=== PATIENT | female | born 2000 | race American Indian/Alaskan Native ===

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

== ENCOUNTER 2019-01-24 22:00 | Inpatient (IN) | payer OTHER ==
[2019-01-24] MEDS ORDERED: LACTATED RINGERS 1,000 ML IV ONE (22:14)
[2019-01-24] MEDS ORDERED: ZOFRAN IV ONE (22:15)
[2019-01-24 23:39] LABS: Hematocrit 35.7 % (30.3-42.9); Hemoglobin 11.8 gm/dl (10.1-14.3); Mean Corpuscular HGB Conc 33 % (30-34); Mean Corpuscular Volume 83 fl (79-97); Platelet Count 174 K/mm3 (140-440); Red Cell Distribution Width 13.2 % (13.2-15.2)
[2019-01-24] MEDS ORDERED: PITOCin/NS 20 UNIT/1000ML DRIP 20 UNITS/1,000 ML BAG IV SCH (23:45)
[2019-01-24 23:48] LABS: BUN/Creatinine Ratio 13; Blood Urea Nitrogen 8 mg/dL (7-17); Calcium 8.7 mg/dL (8.4-10.2); Hemolysis Index 9
[2019-01-24] MEDS ORDERED: AMPICILLIN/NS 2 GM/100 ML 2 GM/100 ML BAG IV ONE (23:53)
[2019-01-24] MEDS ORDERED: BRETHINE IVP PRN (23:53)
[2019-01-24] MEDS ORDERED: MINERAL OIL PO PRN (23:53)
[2019-01-24] MEDS ORDERED: SUBLIMAZE IV PRN (23:53)
[2019-01-24] MEDS ORDERED: XYLOCAINE 2% INFILTRATI ONE (23:53)
[2019-01-24] MEDS ORDERED: BRETHINE SUB-Q PRN (23:53)
[2019-01-24] MEDS ORDERED: STADOL IV PRN (23:53)
[2019-01-25 00:09] LABS: Bilirubin,Urine NEG (Negative); Blood,Urine NEG (Negative); Mucus,Urine 3+ /HPF
[2019-01-25 00:10] LABS: Color,Urine Yellow (Yellow)
[2019-01-25] MEDS: LACTATED RINGERS 1,000 ML IV SCH ×3 (00:24→08:47)
[2019-01-25] MEDS ORDERED: NARCAN 2 MG/2 ML IV PRN (01:43)
--- NOTE | 2019-01-25 01:45 | Anesthesia Consultation ---
Anesthesia Consult and Med Hx Date of service: 01/25/19 - Airway Anesthetic Teeth Evaluation: Good ROM Head & Neck: Adequate Mental/Hyoid Distance: Adequate Mallampati Class: Class I Intubation Access Assessment: Good - Pulmonary Exam CTA: Yes - Cardiac Exam Cardiac Exam: RRR - Pre-Operative Health Status ASA Pre-Surgery Classification: ASA2 Proposed Anesthetic Plan: Epidural - Pulmonary Hx Smoking: No Hx Asthma: No COPD: No Hx Pneumonia: No - Cardiovascular System Hx Hypertension: No Hx Coronary Artery Disease: No - Central Nervous System Hx Neuromuscular Disorder: No Hx Seizures: No Hx Psychiatric Problems: Yes (ADHD- no meds at this time) - Endocrine Hx Renal Disease: No Hx End Stage Renal Disease: No Hx Hypothyroidism: No Hx Hyperthyroidism: No - Hematic Hx Anemia: No Hx Sickle Cell Disease: No - Other Systems Hx Alcohol Use: No
[2019-01-25] MEDS ORDERED: XYLOCAINE 2%/ EPI 1:200,000 INFILTRATI ONE (01:49)
[2019-01-25] MEDS: fentaNYL-BUPIV 2 MCG/ML-0.125% 200 MCG/100 ML BAG EPIDURAL SCH ×2 (02:35→10:48)
[2019-01-25] MEDS: AMPICILLIN/NS 1 GM/50 ML 1 GM/50 ML BAG IV SCH ×2 (04:00→08:45)
[2019-01-25] MEDS: LOMOTIL PO PRN ×2 (05:10→11:01)
[2019-01-25] MEDS ORDERED: TYLENOL ONE (06:51)
[2019-01-25] MEDS ORDERED: PITOCin/NS 30 UNIT/500ML 30,000 MILLIUNITS/500 ML BAG IV ONE (08:19)
[2019-01-25] MEDS ORDERED: LACTATED RINGERS 1,000 ML IV SCH (09:00)
[2019-01-25] MEDS ORDERED: PITOCin/NS 30 UNIT/500ML 30 UNITS/500 ML BAG IV SCH (09:00)
[2019-01-25] MEDS ORDERED: AFLURIA QUAD 2018-2019 SYRINGE IM ONE (12:00)
[2019-01-25] MEDS ORDERED: PNEUMOVAX 23 IM ONE (12:00)
--- NOTE | 2019-01-25 12:20 | History and Physical Report ---
History of Present Illness Date of examination: 01/25/19 Date of admission: 01/25/19 00:01 Chief complaint: contractions History of present illness: 18y/o @ 38+5 weeks presents in active labor with advanced cervical dilation. The patient initiated care late @ 26 weeks ega. Her course is also complicated by non-compliance. GBS status is unknown Past History Past Medical History: no pertinent history Past Surgical History: cholecystectomy Social history: single - Obstetrical History Expected Date of Delivery: 02/03/19 Actual Gestation: 38 Week(s) 5 Day(s) : 2 Para: 1 Hx # Term Pregnancies: 1 Number of Pregnancies: 0 Spontaneous Abortions: 0 Induced : 0 Number of Living Children: 1 Medications and Allergies Allergies Allergy/AdvReac Type Severity Reaction Status Date / Time No Known Allergies Allergy Verified 01/23/16 07:38 Home Medications Medication Instructions Recorded Confirmed Last Taken Type Ibuprofen [Motrin] 600 mg PO Q8H PRN #15 tablet 02/21/17 Unknown Rx Ondansetron [Zofran Odt] 4 mg PO Q8HR PRN #10 tab.rapdis 02/21/17 Unknown Rx Potassium Chloride [K-Dur] 20 meq PO BID 2 Days #4 tab 10/02/18 Unknown Rx cephALEXin [Keflex] 500 mg PO Q12H 7 Days #14 cap 10/02/18 Unknown Rx Active Meds: Active Medications Butorphanol Tartrate (Stadol) 2 mg IV Q2H PRN PRN Reason: Pain , Severe (7-10) Diphenoxylate HCl/Atropine (Lomotil) 1 tab PO Q6H PRN PRN Reason: Diarrhea Last Admin: 01/25/19 11:01 Dose: 1 tab Documented by: Ephedrine Sulfate (Ephedrine Sulfate) 10 mg IV Q2M PRN PRN Reason: Hypotension Fentanyl (Sublimaze) 100 mcg IV Q2H PRN PRN Reason: Labor Pain Ampicillin Sodium (Ampicillin/Ns 1 Gm/50 Ml) 1 gm in 50 mls @ 100 mls/hr IV Q4HR ROBYN; Protocol Last Admin: 01/25/19 08:45 Dose: 100 mls/hr Documented by: Lactated Ringer's (Lactated Ringers) 1,000 mls @ 125 mls/hr IV DIRECT ROBYN Last Admin: 01/25/19 08:47 Dose: 200 mls/hr Documented by: Oxytocin/Sodium Chloride (Pitocin/Ns 20 Unit/1000ml Drip) 20 units in 1,000 mls @ 125 mls/hr IV DIRECT ROBYN Fentanyl/Bupivacaine/Sodium Chlor (Fentanyl-Bupiv 2 Mcg/Ml-0.125%) 200 mcg in 100 mls @ 12 mls/hr EPIDURAL TITR ROBYN; Protocol Last Admin: 01/25/19 10:48 Dose: 12 mls/hr Documented by: Lactated Ringer's (Lactated Ringers) 1,000 mls @ 200 mls/hr IV DIRECT ROBYN Oxytocin/Sodium Chloride (Pitocin/Ns 30 Unit/500ml) 30 units in 500 mls @ 2 mls/hr IV TITR ROBYN; Protocol Mineral Oil (Mineral Oil) 30 ml PO QHS PRN PRN Reason: Constipation Naloxone HCl (Narcan 2 Mg/2 Ml) 0.2 mg IV Q5M PRN PRN Reason: Respiratory sedation Terbutaline Sulfate (Brethine) 0.25 mg SUB-Q ONCE PRN PRN Reason: Hyperstimulation/Hypertonicity Terbutaline Sulfate (Brethine) 0.25 mg IVP ONCE PRN PRN Reason: Hyperstimulation/Hypertonicity Review of Systems All systems: negative Gastrointestinal: diarrhea Genitourinary: pelvic pain, contractions - Vital Signs Vital signs: Vital Signs Pulse Pulse Ox 87 100 01/24/19 22:46 01/24/19 22:46 Temp Pulse Resp BP Pulse Ox 98.2 F 93 H 16 129/71 100 01/25/19 08:43 01/25/19 12:17 01/25/19 08:43 01/25/19 12:17 01/25/19 11:58 - Physical Exam Breasts: Positive: deferred Cardiovascular: Regular rate Lungs: Positive: Clear to auscultation Abdomen: Positive: normal appearance Results Result Diagrams: 01/24/19 22:49 01/24/19 22:49 Abnormal lab results 01/24/19 01/24/19 01/24/19 Range/Units 22:49 22:49 22:49 MCH 27 L (28-32) pg Carbon Dioxide 19 L (22-30) mmol/L Creatinine 0.6 L (0.7-1.2) mg/dL Ur Specific [place] 1.032 H (1.003-1.030) All other labs normal. Assessment and Plan - Patient Problems (1) Active labor at term Current Visit: Yes Status: Acute Plan to address problem: admit to L&D
[2019-01-25] MEDS ORDERED: DULCOLAX PR PRN (12:21)
[2019-01-25] MEDS ORDERED: NORCO 5/325 PO PRN (12:21)
[2019-01-25] MEDS ORDERED: MILK OF MAGNESIA PO PRN (12:21)
[2019-01-25] MEDS ORDERED: LANSINOH TP PRN (12:21)
[2019-01-25] MEDS ORDERED: BENADRYL PO PRN (12:21)
[2019-01-25] MEDS ORDERED: ZOFRAN IV PRN (12:21)
[2019-01-25] MEDS ORDERED: PHENERGAN PR PRN (12:21)
[2019-01-25] MEDS ORDERED: PHENERGAN PO PRN (12:21)
[2019-01-25] MEDS ORDERED: TYLENOL PO PRN (12:21)
[2019-01-25] MEDS ORDERED: TUCKS PAD TP PRN (12:21)
--- NOTE | 2019-01-25 12:21 | Procedure Note ---
OB Delivery Note - Delivery Date of Delivery: 01/25/19 Surgeon: EDMOND RANKIN Estimated blood loss: 100cc - Vaginal Delivery presentation: vertex Delivery position: OA Intrapartum events: none Delivery augmentation: pitocin Delivery monitor: external FHT Route of delivery: Delivery placenta: spontaneous Delivery cord: 3 umbilical vessels Episiotomy: none Delivery laceration: none Anesthesia: epidural Delivery comments: Patient progressed to C/C/+2 and pushed to deliver a liveborn female with apgars of 8/9 and weight of 6lbs 12oz. After delivery of the head, the shoulders delivered without difficulty. The was bulb suctioned. The cord clamped and cut and the placed on the patient's chest. The placenta delivered spontaneously intact with a 3VC. No lacerations noted. EBL 100ml - A at 1 minute: 8 at 5 minutes: 9 Infant Gender: Female (weight 6lbs 12oz)
[2019-01-25] MEDS ORDERED: SODIUM CHLORIDE FLUSH SYRINGE 10 ML IV NR (13:00)
[2019-01-25] MEDS ORDERED: TYLENOL PO ONE (16:27)
[2019-01-25] MEDS ORDERED: NACL 0.9% 1000 ML 1,000 ML IV ONE (16:40)
--- NOTE | 2019-01-25 21:33 | Post Anesthesia Evaluation ---
- Post Anesthesia Evaluation Patient Participated: Yes Airway Patent: Yes Stable Respiratory Function: Yes Nausea/Vomiting: No Temp > 96.8F: Yes Pain Manageable: Yes Adequeate Hydration: Yes Anesthesia Complications: No Block Receding Appropriately: Yes Patient on Ventilator: No
[2019-01-25] MEDS: IBUPROFEN PO SCH (23:56)
[2019-01-26 00:51] LABS: Hematocrit 26.9 % (30.3-42.9); Hemoglobin 8.7 gm/dl (10.1-14.3)
[2019-01-26] MEDS: IBUPROFEN PO SCH ×3 (05:41→19:00)
--- NOTE | 2019-01-26 08:46 | Progress Note ---
Assessment and Plan A/P PPD #1 s/p spike temp with watery diarrhea may have diarrhea cultured continue present mgt Subjective - Subjective Date of service: 01/26/19 (s/p ) Patient reports: appetite normal, voiding normally, pain well controlled, flatus, ambulating normally : doing well Objective - Vital Signs Latest vital signs: Vital Signs Temp Pulse Resp BP BP Pulse Ox 01/26/19 05:41 20 01/26/19 02:00 98.2 F 69 18 101/61 01/25/19 23:56 18 01/25/19 21:00 97.4 F L 73 18 117/61 99 01/25/19 19:40 98.8 F 01/25/19 16:42 20 01/25/19 15:55 102.4 F H 88 18 114/74 01/25/19 15:15 98.5 F 89 140/71 01/25/19 13:40 75 125/85 01/25/19 13:25 70 134/68 01/25/19 13:10 84 130/74 01/25/19 12:55 83 132/70 100 01/25/19 12:50 92 H 100 01/25/19 12:45 91 H 98 01/25/19 12:43 104 H 90 01/25/19 12:40 82 141/70 96 01/25/19 12:38 86 92 01/25/19 12:35 78 97 01/25/19 12:31 82 69 L 01/25/19 12:30 86 100 01/25/19 12:25 80 83 L 01/25/19 12:24 83 127/68 01/25/19 12:17 93 H 129/71 01/25/19 12:13 98.2 F 20 01/25/19 12:03 92 H 132/75 01/25/19 11:58 85 100 01/25/19 11:53 92 H 100 01/25/19 11:52 88 122/77 01/25/19 11:49 86 149/102 01/25/19 11:48 88 85 01/25/19 11:43 84 100 01/25/19 11:38 82 100 01/25/19 11:34 85 132/77 01/25/19 11:33 75 100 01/25/19 11:18 78 119/68 01/25/19 11:07 72 100 01/25/19 11:02 78 100 01/25/19 11:00 83 125/58 01/25/19 10:59 58 L 94 01/25/19 10:56 84 100 01/25/19 10:51 85 99 01/25/19 10:46 82 99 01/25/19 10:44 80 124/73 01/25/19 10:41 76 100 01/25/19 10:36 88 99 01/25/19 10:31 85 99 01/25/19 10:29 84 122/69 01/25/19 10:26 79 81 L 01/25/19 10:20 82 66 L 01/25/19 10:19 84 56 L 01/25/19 10:15 80 117/66 99 01/25/19 10:10 99 H 99 01/25/19 10:05 91 H 98 01/25/19 10:00 97.9 F 86 16 98 01/25/19 09:59 78 122/69 01/25/19 09:55 87 99 01/25/19 09:50 99 H 99 01/25/19 09:45 96 H 98 01/25/19 09:44 84 126/60 01/25/19 09:39 108 H 85 01/25/19 09:34 83 100 01/25/19 09:31 81 122/62 01/25/19 09:29 98 H 98 01/25/19 09:24 95 H 100 01/25/19 09:19 101 H 99 01/25/19 09:16 99 H 124/88 01/25/19 09:14 88 98 01/25/19 09:09 101 H 98 01/25/19 09:04 91 H 98 01/25/19 08:59 98 H 119/65 97 01/25/19 08:54 81 97 01/25/19 08:49 91 H 98 Intake and Output 01/25/19 01/26/19 01/26/19 23:59 07:59 15:59 Intake Total 240 480 Output Total 900 Balance -660 480 Intake: Intake, Free Water 240 480 Output: Urine 900 Void 900 Other: Total, Output Amount 900 # Voids Void 1 - Exam Breasts: Present: normal Cardiovascular: Present: Regular rate, Normal S1 Lungs: Present: Clear to auscultation, Normal air movement Abdomen: Present: normal appearance, soft, normal bowel sounds. Absent: distention, tenderness, guarding Vulva: both: normal Uterus: Present: normal, firm, fundal height below umbilicus. Absent: bogginess, tenderness Extremities: Present: normal Deep Tendon Reflex Grade: Normal +2 Incision: Present: normal - Labs Labs: Abnormal lab results 01/26/19 Range/Units 00:33 Hgb 8.7 L D (10.1-14.3) gm/dl Hct 26.9 L D (30.3-42.9) %
--- NOTE | 2019-01-26 12:51 | Discharge Summary ---
Providers - Providers Date of Admission: 01/25/19 00:01 Date of discharge: 01/27/19 Attending physician: EDMOND RANKIN Primary care physician: EDMOND RANKIN Hospitalization Reason for admission: active labor Delivery: Episiotomy: none Laceration: none Incision: normal, dry, intact Other procedures: none Discharge diagnosis: IUP at term delivered baby: female Hospital course: unremarkable hospital cousre. Had one temp spike. patient had diarrhea resolved prior to discharge home Condition at discharge: Good Disposition: DC- TO HOME OR SELFCARE Plan - Discharge Medications Prescriptions: Ibuprofen [Motrin] 600 mg PO Q8H PRN #30 tablet PRN Reason: Pain oxyCODONE /ACETAMINOPHEN [Percocet 5/325] 1 tab PO Q6HR PRN #30 tablet PRN Reason: Pain - Provider Discharge Summary Activity: routine, no sex for 6 weeks, no strenuous exercise Diet: routine Instructions: routine Additional instructions: [] Smoking cessation referral if applicable(refer to patient education folder for contact #) [] Refer to [facility] Booklet Call your doctor immediately for: * Fever > 100.5 * Heavy vaginal bleeding ( >1 pad per hour) * Severe persistent headache * Shortness of breath * Reddened, hot, painful area to leg or breast * Drainage or odor from incision. * Keep incision clean and dry at all times and follow doctor's instructions regarding bathing/showering - Follow up plan Follow up: EDMOND RANKIN MD [Primary Care Provider] - 14 Days
[2019-01-27] MEDS: IBUPROFEN PO SCH ×2 (01:53→13:12)
[2019-01-27 17:36] VITALS: BP 133/80
[2019-01-27] MEDS ORDERED: BOOSTRIX IM ONE (19:00)
[2019-01-27] MEDS ORDERED: AFLURIA QUAD 2018-2019 SYRINGE IM ONE (19:00)
== END 2019-01-27 19:20 | disposition home or self-care (01) | DRG 774 ==
LOC: TRG 22:00 → LD 01-25 00:01 → OB 01-25 14:42
PROVIDERS: ADMIT Obstetrics & Gynecology; ATTEND Obstetrics & Gynecology
PROC: 10E0XZZ Delivery of Products of Conception, External Approach (ICD-10-PCS; principal; 2019-01-25)
PROC: 3E0R3BZ Introduction of Anesthetic Agent into Spinal Canal, Percutaneous Approach (ICD-10-PCS; 2019-01-25)
PROC: 00HU33Z Insertion of Infusion Device into Spinal Canal, Percutaneous Approach (ICD-10-PCS; 2019-01-25)
PROC: 3E0234Z Introduction of Serum, Toxoid and Vaccine into Muscle, Percutaneous Approach (ICD-10-PCS; 2019-01-27)
DX: O99.344 Other mental disorders complicating childbirth (principal); O86.4 Pyrexia of unknown origin following delivery; Z3A.38 38 weeks gestation of pregnancy; Z37.0 Single live birth; R19.7 Diarrhea, unspecified; Z23 Encounter for immunization; Z90.49 Acquired absence of other specified parts of digestive tract; O99.63 Diseases of the digestive system complicating the puerperium; F90.9 Attention-deficit hyperactivity disorder, unspecified type
CPT/HCPCS: 36415; 80048; 81001; 85014; 85018; 85027; 86592; 86850; 86900; 86901; 90686; 90732; G0378; J0290; J2405; J2590; J3010; J7030; J7120

== ENCOUNTER 2019-06-07 15:02 | Emergency (ER) | payer OTHER ==
[2019-06-07 15:11] VITALS: BP 135/90
--- NOTE | 2019-06-07 15:11 | Event Note ---
ED Screening Note ED Screening Note: pt presents with left sided flank pain that began three days ago no N/V/D no urinary sx last BM two days ago LNMP may 29 no pmhx no allergies to meds PSHx cholecystectomy +tobacco non drinker no drug use This initial assessment/diagnostic orders/clinical plan/treatment(s) is/are subject to change based on patients health status, clinical progression and re- assessment by fellow clinical providers in the ED. Further treatment and workup at subsequent clinical providers discretion. Patient/guardian urged not to elope from the ED as their condition may be serious if not clinically assessed and managed. Initial orders include: labs, UA, urine preg, XR abd
[2019-06-07 16:14] LABS: Bilirubin,Urine NEG (Negative); Blood,Urine NEG (Negative); Color,Urine Yellow (Yellow); Mucus,Urine FEW /HPF; Protein,Urine <15 mg/dL mg/dL (Negative); Urobilinogen,Urine < 2.0 mg/dL (<2.0)
[2019-06-07 16:16] LABS: HCG Qualitative,Urine Negative (Negative)
[2019-06-07 16:19] LABS: Basophils % (Auto) 0.4 % (0.0-1.8); Eosinophils # (Auto) 0.1 K/mm3 (0.0-0.4); Eosinophils % (Auto) 1.8 % (0.0-4.3); Hematocrit 35.8 % (30.3-42.9); Hemoglobin 11.6 gm/dl (10.1-14.3); Lymphocytes # (Auto) 2.2 K/mm3 (1.2-5.4); Lymphocytes % (Auto) 29.5 % (13.4-35.0); Mean Corpuscular HGB Conc 32 % (30-34); Mean Corpuscular Hemoglobin 27 pg (28-32); Mean Corpuscular Volume 83 fl (79-97); Monocytes # (Auto) 0.7 K/mm3 (0.0-0.8); Monocytes % (Auto) 9.2 % (0.0-7.3); Platelet Count 259 K/mm3 (140-440); Red Blood Count 4.32 M/mm3 (3.65-5.03); Red Cell Distribution Width 13.7 % (13.2-15.2)
[2019-06-07 16:35] LABS: BUN/Creatinine Ratio 8; Blood Urea Nitrogen 5 mg/dL (7-17); Calcium 9.3 mg/dL (8.4-10.2)
[2019-06-07 16:36] LABS: Alanine Aminotransferase 13 units/L (7-56); Albumin 3.9 g/dL (3.9-5); Hemolysis Index 6; Lipase 18 units/L (13-60)
--- NOTE | 2019-06-07 17:17 | XRay Report ---
ABDOMEN 3 VIEW(S) INDICATION / CLINICAL INFORMATION: constipation, abd pain. COMPARISON: None available. FINDINGS: TUBES / LINES: Biliary stent is noted in the right upper quadrant of abdomen. BOWEL GAS PATTERN: Moderate amount of solid stool seen within the colon characteristic for constipati on. FREE AIR / EXTRALUMINAL GAS: None seen. ADDITIONAL FINDINGS: Cholecystectomy clips. IMPRESSION: 1. Moderate constipation. No acute abdominal disease Signer Name: José Miguel Bliss MD Signed: 06/07/2019 5:13 PM Workstation Name: [id number]
--- NOTE | 2019-06-07 18:50 | Emergency Department Report ---
ED Abdominal Pain HPI - General Chief Complaint: Abdominal Pain Stated Complaint: RT SIDE PAIN Time Seen by Provider: 06/07/19 15:09 Source: patient Mode of arrival: Ambulatory Limitations: No Limitations - History of Present Illness Initial Comments: This is a 19-year-old -[place] female presents to the emergency room with right sided abdominal pain for 3 days. Patient also reports nausea without vomiting. She reports pain is worse with movement. Her last menstrual period was 05/29/2019, A0. Patient denies vaginal discharge, vaginal bleeding, dysuria, urinary frequency, or urgency. MD Complaint: abdominal pain Onset/Timin -: days(s) Location: RUQ, RLQ Radiation: none Migration to: no migration Severity: moderate Severity scale (0 -10): 4 Quality: cramping, aching Consistency: intermittent Improves With: nothing Worsens With: movement Associated Symptoms: nausea. denies: vomiting, diarrhea, fever, chills, constipation, dysuria, hematemesis, hematochezia, melena, hematuria, anorexia, syncope Treatments Prior to Arrival: NSAIDs - Related Data LMP Date: 05/29/19 Previous Rx's Medication Instructions Recorded Last Taken Type Ibuprofen [Motrin] 600 mg PO Q8H PRN #15 tablet 02/21/17 Unknown Rx Ondansetron [Zofran Odt] 4 mg PO Q8HR PRN #10 tab.rapdis 02/21/17 Unknown Rx Potassium Chloride [K-Dur] 20 meq PO BID 2 Days #4 tab 10/02/18 Unknown Rx cephALEXin [Keflex] 500 mg PO Q12H 7 Days #14 cap 10/02/18 Unknown Rx Ibuprofen [Motrin] 600 mg PO Q8H PRN #30 tablet 01/26/19 Unknown Rx oxyCODONE /ACETAMINOPHEN [Percocet 1 tab PO Q6HR PRN #30 tablet 01/26/19 Unknown Rx 5/325] Docusate Sodium [Colace CAP] 100 mg PO BID PRN #30 capsule 06/07/19 Unknown Rx Psyllium Husk/Laxative No.1 [Colox 750 mg PO DAILY #20 capsule 06/07/19 Unknown Rx 750 mg Capsule] Allergies Allergy/AdvReac Type Severity Reaction Status Date / Time No Known Allergies Allergy Verified 01/23/16 07:38 ED Review of Systems ROS: Stated complaint: RT SIDE PAIN Other details as noted in HPI Constitutional: denies: chills, fever Respiratory: denies: cough, shortness of breath, wheezing Cardiovascular: denies: chest pain, palpitations Gastrointestinal: abdominal pain, nausea. denies: vomiting, diarrhea Musculoskeletal: denies: back pain, joint swelling, arthralgia Skin: denies: rash, lesions Neurological: denies: headache, weakness, paresthesias Psychiatric: denies: anxiety, depression ED Past Medical Hx - Past Medical History Previous Medical History?: Yes Hx Hypertension: No Hx Congestive Heart Failure: No Hx Diabetes: No Hx Deep Vein Thrombosis: No Hx Renal Disease: No Hx Sickle Cell Disease: No Hx Seizures: No Hx Asthma: No Hx COPD: No Hx HIV: No Additional medical history: Irregular menses - Surgical History Past Surgical History?: Yes Hx Cholecystectomy: Yes Additional Surgical History: Gallbladder - Social History Smoking Status: Smoker, Current Status Unknown Substance Use Type: None - Medications Home Medications: Home Medications Medication Instructions Recorded Confirmed Last Taken Type Ibuprofen [Motrin] 600 mg PO Q8H PRN #15 tablet 02/21/17 01/25/19 Unknown Rx Ondansetron [Zofran Odt] 4 mg PO Q8HR PRN #10 tab.rapdis 02/21/17 01/25/19 Unknown Rx Potassium Chloride [K-Dur] 20 meq PO BID 2 Days #4 tab 10/02/18 01/25/19 Unknown Rx cephALEXin [Keflex] 500 mg PO Q12H 7 Days #14 cap 10/02/18 01/25/19 Unknown Rx Ibuprofen [Motrin] 600 mg PO Q8H PRN #30 tablet 01/26/19 Unknown Rx oxyCODONE /ACETAMINOPHEN [Percocet 1 tab PO Q6HR PRN #30 tablet 01/26/19 Unknown Rx 5/325] Docusate Sodium [Colace CAP] 100 mg PO BID PRN #30 capsule 06/07/19 Unknown Rx Psyllium Husk/Laxative No.1 [Colox 750 mg PO DAILY #20 capsule 06/07/19 Unknown Rx 750 mg Capsule] ED Physical Exam - General Limitations: No Limitations General appearance: alert, in no apparent distress - Respiratory Respiratory exam: Present: normal lung sounds bilaterally. Absent: respiratory distress - Cardiovascular Cardiovascular Exam: Present: regular rate, normal rhythm. Absent: systolic murmur, diastolic murmur, rubs, gallop - GI/Abdominal GI/Abdominal exam: Present: soft, normal bowel sounds. Absent: distended, tenderness, guarding, rebound, rigid, organomegaly, mass, bruit, pulsatile mass, hernia - Back Exam Back exam: Present: full ROM, CVA tenderness (R). Absent: CVA tenderness (L), muscle spasm, rash noted - Neurological Exam Neurological exam: Present: alert, oriented X3, normal gait - Psychiatric Psychiatric exam: Present: normal affect, normal mood - Skin Skin exam: Present: warm, dry, intact, normal color. Absent: rash ED Course Vital Signs 06/07/19 15:10 Temperature 98.4 F Pulse Rate 85 Respiratory 16 Rate Blood Pressure 135/90 O2 Sat by Pulse 100 Oximetry ED Medical Decision Making - Lab Data Result diagrams: 06/07/19 16:03 06/07/19 16:03 Lab Results 06/07/19 06/07/19 06/07/19 Range/Units 15:42 16:03 16:03 WBC 7.4 (4.5-11.0) K/mm3 RBC 4.32 (3.65-5.03) M/mm3 Hgb 11.6 (10.1-14.3) gm/dl Hct 35.8 (30.3-42.9) % MCV 83 (79-97) fl MCH 27 L (28-32) pg MCHC 32 (30-34) % RDW 13.7 (13.2-15.2) % Plt Count 259 (140-440) K/mm3 Lymph % (Auto) 29.5 (13.4-35.0) % [place]icher % (Auto) 9.2 H (0.0-7.3) % Eos % (Auto) 1.8 (0.0-4.3) % Baso % (Auto) 0.4 (0.0-1.8) % Lymph # 2.2 (1.2-5.4) K/mm3 Schleicher # 0.7 (0.0-0.8) K/mm3 Eos # 0.1 (0.0-0.4) K/mm3 Baso # 0.0 (0.0-0.1) K/mm3 Seg Neutrophils % 59.1 (40.0-70.0) % Seg Neutrophils # 4.4 (1.8-7.7) K/mm3 Sodium 137 (137-145) mmol/L Potassium 3.9 (3.6-5.0) mmol/L Chloride 99.1 (98-107) mmol/L Carbon Dioxide 29 (22-30) mmol/L Anion Gap 13 mmol/L BUN 5 L (7-17) mg/dL Creatinine 0.6 L (0.7-1.2) mg/dL Estimated GFR > 60 ml/min BUN/Creatinine Ratio 8 % Glucose 98 (65-100) mg/dL Calcium 9.3 (8.4-10.2) mg/dL Total Bilirubin 0.20 (0.1-1.2) mg/dL AST 19 (5-40) units/L ALT 13 (7-56) units/L Alkaline Phosphatase 61 (35-129) units/L Total Protein 7.6 (6.3-8.2) g/dL Albumin 3.9 (3.9-5) g/dL Albumin/Globulin Ratio 1.1 % Lipase 18 (13-60) units/L Urine Color Yellow (Yellow) Urine Turbidity Slightly-cloudy (Clear) Urine pH 7.0 (5.0-7.0) Ur Specific [place] 1.017 (1.003-1.030) Urine Protein <15 mg/dl (Negative) mg/dL Urine Glucose (UA) Neg (Negative) mg/dL Urine Ketones Neg (Negative) mg/dL Urine Blood Neg (Negative) Urine Nitrite Neg (Negative) Urine Bilirubin Neg (Negative) Urine Urobilinogen < 2.0 (<2.0) mg/dL Ur Leukocyte Esterase Tr (Negative) Urine WBC (Auto) 2.0 (0.0-6.0) /HPF Urine RBC (Auto) 1.0 (0.0-6.0) /HPF U Epithel Cells (Auto) 3.0 (0-13.0) /HPF Urine Mucus Few /HPF Urine HCG, Qual Negative (Negative) - Radiology Data Radiology results: report reviewed ABDOMEN 3 VIEW(S) INDICATION / CLINICAL INFORMATION: constipation, abd pain. COMPARISON: None available. FINDINGS: TUBES / LINES: Biliary stent is noted in the right upper quadrant of abdomen. BOWEL GAS PATTERN: Moderate amount of solid stool seen within the colon characteristic for constipation. FREE AIR / EXTRALUMINAL GAS: None seen. ADDITIONAL FINDINGS: Cholecystectomy clips. IMPRESSION: 1. Moderate constipation. No acute abdominal disease - Medical Decision Making Patient examined by me. No distress noted. Vitals stable. Obtained labs and x- ray of abdomen. All labs are unremarkable. The x-ray was dictated by the radiologist and report was reviewed by myself with findings of moderate constipation with no acute abdominal disease. Patient instructed to increase fiber and water intake. Start psyllium and docusate sodium. Follow up with PCP from referral's. Critical care attestation.: If time is entered above; I have spent that time in minutes in the direct care of this critically ill patient, excluding procedure time. ED Disposition Clinical Impression: Constipation by delayed colonic transit, Right sided abdominal pain Disposition: TO HOME OR SELFCARE Is pt being admited?: No Does the pt Need Aspirin: No Condition: Stable Instructions: Abdominal Pain (ED), High Fiber Diet (ED), Constipation (ED) Additional Instructions: Increase fiber intake with foods and/or metamucil. Increase water intake and drink or eat prunes. Take colace daily to soften stool. Follow-up with her primary care doctor from the referral list below. Prescriptions: Docusate Sodium [Colace CAP] 100 mg PO BID PRN #30 capsule PRN Reason: Constipation Psyllium Husk/Laxative No.1 [Colox 750 mg Capsule] 750 mg PO DAILY #20 capsule Referrals: ARASH ROBBINS MD [Primary Care Provider] - 3-[address] [facility] [Outside] - 3-5 Days [facility] [Outside] - 3-5 Days Forms: Work/School Release Form(ED) Time of Disposition: 19:04
== END 2019-06-07 19:19 | disposition home or self-care (01) ==
LOC: ED 15:02
DX: K59.09 Other constipation (principal); Z90.49 Acquired absence of other specified parts of digestive tract; Z79.899 Other long term (current) drug therapy
CPT/HCPCS: 36415; 74019; 80053; 81001; 81025; 83690; 85025; 99283

== ENCOUNTER 2020-02-20 19:36 | Emergency (ER) | payer OTHER ==
[2020-02-20 20:07] VITALS: BP 107/80
== END 2020-02-20 21:45 | disposition left against medical advice (07) ==
LOC: ED 19:36
DX: R55 Syncope and collapse (principal); Z53.21 Procedure and treatment not carried out due to patient leaving prior to being seen by health care provider